=== PATIENT | male | born 1995 | race Caucasian/White ===

== ENCOUNTER 2020-07-01 04:30 | Emergency (ER) | payer SELFPAY ==
[2020-07-01 04:35] VITALS: BP 143/93; PULSE 88; RESP 14; TEMP 36.3; O2SAT 98
--- NOTE | 2020-07-01 04:40 | W.ED.GENAD ---
Discharge Plan Disposition Patient Disposition: HOME Condition: Good Discharge Details Clinical Impression: Acute pulpitis ED Provider: Manish Ramirez Home Meds and New Rx's Prescriptions: New penicillin V potassium 500 mg tablet 500 mg PO QID 10 Days Qty: 40 RF: 0 Discharge Instructions Instructions: Toothache (ED) Additional Instructions: At this time you have evidence of a mild dental infection. Please take the antibiotic penicillin as directed. Please take 1000 mg of Tylenol and 800 mg of ibuprofen as needed for pain. These are the maximum doses, do not exceed these doses. Please follow-up closely with your dentist for further assessment. If you notice any worsening of your symptoms, or any new symptoms such as vomiting, diarrhea, fever, chills, shortness of breath, chest pain, numbness, weakness, or fainting , please return immediately to the emergency department for reevaluation. As always, it was a pleasure participating in your medical care today. Medical Decision Making This is a pleasant 24-year-old male who presents today for right upper dental pain. Patient states that 2 to 3 months ago he had worked out on one of his right upper frontal teeth. However over the last 2 to 3 days he has had mild swelling, and pain in this area. He denies fever or chills. He denies drainage or difficulty swallowing. He does have follow-up scheduled with his dentist on the eighth of the coming month. He denies any other complaints at this time. No other modifying factors. Physical exam is unremarkable. No murmur, no periapical abscess. Mild dental caries are present. Suspect patient is suffering from mild pulpitis secondary to chronic mild dental infection. No indication for abscess drainage is no abscess is currently present. Recommend Tylenol and Motrin. Will give a small bottle of penicillin here in the prescription for home use. I did offer dental block but the patient refused at this time. Patient will follow closely with his dentist in the next week. I have extensively reviewed the treatment plan and discharge instructions with the patient. I have addressed all patient concerns at this time. The patient was made aware of what symptoms to monitor for that would warrant a return to the emergency department. Discussed the plan with the patient, they demonstrate verbal understanding and agreement with our assessment and plan at this time. The documentation in this chart was dictated using [employer] dictation software. Please excuse any dictation errors. HPI General Date/Time Provider Initiated Documentation: 07/01/20 04:34. HPI Narrative: This is a pleasant 24-year-old male who presents today for right upper dental pain. Patient states that 2 to 3 months ago he had worked out on one of his right upper frontal teeth. However over the last 2 to 3 days he has had mild swelling, and pain in this area. He denies fever or chills. He denies drainage or difficulty swallowing. He does have follow-up scheduled with his dentist on the eighth of the coming month. He denies any other complaints at this time. No other modifying factors. Related Data Home Medications Medication Instructions Recorded Confirmed penicillin V potassium 500 mg PO QID 10 Days #40 tab 07/01/20 Previous Rx's Medication Instructions Recorded penicillin V potassium 500 mg PO QID 10 Days #40 tab 07/01/20 Allergies Allergy/AdvReac Type Severity Reaction Status Date / Time No Known Allergies Allergy Unverified 07/01/20 04:38 General Stated Complaint: DentalOral SUYAPA: 4 Review of Systems All systems reviewed & are unremarkable except as noted in HPI and below [facility] Social History Smoking/Tobacco Use Status: Current every day Smoking risk assessment performed?: Yes Alcohol Intake: current Alcohol Intake frequency: holidays/special occasions only Drug use: Daily Substance use type: marijuana Do you feel safe at home: Yes Do you feel safe in your relationship?: Yes Exam Narrative Exam Narrative: 1.Const: Well-nourished, Well-developed, appearing stated age 2.Eyes: PERRL, no conjunctival injection, and symmetrical lids. 3.ENT: Atraumatic external nose and ears. Moist MM. Neck: Symmetric, trachea midline, No thyromegaly. Dental exam demonstrates no evidence of periapical abscess, fluctuance, or drainage. There is evidence of mild dental caries throughout. Right upper frontal tooth around tooth 7 is tender at the cranial component. 4.CVS: +S1/S2, No murmurs or gallops. Peripheral pulses 2+ and equal in all extremities. Brisk capillary refill in all extremities. 5.RESP: Unlabored respiratory effort. Clear to auscultation bilaterally. No wheezes rales or rhonchi 6.GI: Soft, Nontender/Nondistended, No hepatosplenomegaly. No guarding or rebound. 7.MSK: Normocephalic/Atraumatic, Extremities w/o deformity or ttp No cyanosis or clubbing, Normal movement of all extremities 8.Skin: Warm, Dry. No rashes or lesions. 9.Neuro: proof load mechanic II-XII grossly intact. Sensation grossly intact, no focal neurologic deficits. 10.Psych: (AAO) x3. Appropriate mood and affect Course Vital Signs Vital signs: Vital Signs Temperature 36.3 C L 07/01/20 04:35 Pulse 88 07/01/20 04:35 Respiratory Rate 14 07/01/20 04:35 Blood Pressure 143/93 H 07/01/20 04:35 Pulse Oximetry 98 07/01/20 04:35 Temperature 36.3 C L 07/01/20 04:35 Temperature Source Skin 07/01/20 04:35 Pulse 88 07/01/20 04:35 Respiratory Rate 14 07/01/20 04:35 Blood Pressure 143/93 H 07/01/20 04:35 Blood Pressure Position Sitting 07/01/20 04:35 Pulse Oximetry 98 07/01/20 04:35 Oxygen Delivery Method Room Air 07/01/20 04:35 Oxygen Flow Rate 0 07/01/20 04:35
[2020-07-01] MEDS: Penicillin V POTASSIUM 500 MG TAB, 4 TABS/BTL PO (04:44)
== END 2020-07-01 04:46 | disposition home or self-care (01) ==
PROVIDERS: Emergency Provider Student in an Organized Health Care Education/Training Program; PCP Nurse Practitioner Family
DX: K04.01 Reversible pulpitis (principal)
CPT/HCPCS: 99283